=== PATIENT | female | born 1945 | race Caucasian/White ===

== ENCOUNTER 2023-10-15 05:36 | Inpatient (IN) ==
--- NOTE | 2023-09-25 10:06 | PAT Medication Instructions ---
Medication Instructions Date of Service September 25, 2023 Home Medications anastrozole 1 mg tablet 1 mg PO QAM aspirin 81 mg capsule 81 mg PO QAM chlorthalidone 25 mg tablet 25 mg PO QAM cholecalciferol (vitamin D3) 125 mcg (5,000 unit) tablet (Vitamin D3) 125 mcg PO QAM dapagliflozin propanediol 10 mg tablet (Farxiga) 10 mg PO QAM levothyroxine 100 mcg tablet 100 mcg PO QAM paroxetine HCl 20 mg tablet 20 mg PO QAM potassium chloride 10 mEq capsule,extended release 10 meq PO QAM rosuvastatin 20 mg tablet 20 mg PO HS semaglutide 2 mg/dose (8 mg/3 mL) subcutaneous pen injector (Ozempic) 2 mg subcut Q7D vitamin E 180 mg PO QAM ASK your prescriber and surgeon anastrozole 1 mg tablet 1 mg PO QAM aspirin 81 mg capsule 81 mg PO QAM STOP taking 3 days before surgery dapagliflozin propanediol 10 mg tablet (Farxiga) 10 mg PO QAM STOP 7 days prior to surgery semaglutide 2 mg/dose (8 mg/3 mL) subcutaneous pen injector (Ozempic) 2 mg subcut Q7D STOP taking 2 weeks before surgery (or as soon as possible if surgery is within 2 weeks) vitamin E 180 mg PO QAM DO NOT take the morning of surgery chlorthalidone 25 mg tablet 25 mg PO QAM cholecalciferol (vitamin D3) 125 mcg (5,000 unit) tablet (Vitamin D3) 125 mcg PO QAM potassium chloride 10 mEq capsule,extended release 10 meq PO QAM Take morning of surgery With a small sip of water, OTHERWISE NOTHING TO EAT OR DRINK AFTER MIDNIGHT: levothyroxine 100 mcg tablet 100 mcg PO QAM paroxetine HCl 20 mg tablet 20 mg PO QAM Take evening before surgery rosuvastatin 20 mg tablet 20 mg PO HS Other Notes If you have any questions please call us at [phone] or [phone] or [phone] or [phone]
--- NOTE | 2023-09-29 09:52 | Anesthesiology Consultation ---
Date of Service September 29, 2023 Assessment & Plan (1) Encounter for pre-operative examination: - check BSG am DOS. - awaiting surgeon ordered [facility] medical and cardiology clearances per patient and friend. PAT testing to be faxed to [facility] PCP. - semaglutide instructions: Patient informed at PAT visit to stop 7 days prior to surgery- voiced understanding. Patient advised to check with prescriber to see if alternative diabetic management changes recommended while holding semaglutide- if so, patient to call back to [facility] to update chart and discuss if any further preop medication instructions needed. Chart Review Chart Review: Pending: Refer to Additional Notes / Consult section and Patient seen in Pre Admission Testing Teaching & Discussion Pre-Anesthesia Teaching/Discussion Notes: Instructed NPO after midnight before surgery, except medications with 15 cc of water. Medication instructions provided according to the [facility] guidelines. History Surgery Operation Date: 10/15/23 11:25 Proposed Procedures p C4-C7 Anterior Cervical Discectomy and Fusion with Spinal Cord Monitoring - Tony Chicas, Height/Weight Height: 5 ft 4 in Weight: 91.6 kg Allergies Allergy/AdvReac Type Severity Reaction Status Date / Time No Known Allergies Allergy Verified 09/25/23 08:41 Medications Home Medications Medication Instructions Recorded Confirmed Last Taken anastrozole 1 mg tablet 1 mg PO QAM 09/25/23 09/25/23 Unknown aspirin 81 mg capsule 81 mg PO QAM 09/25/23 09/25/23 Unknown chlorthalidone 25 mg tablet 25 mg PO QAM 09/25/23 09/25/23 Unknown cholecalciferol (vitamin D3) 125 125 mcg PO QAM 09/25/23 09/25/23 Unknown mcg (5,000 unit) tablet (Vitamin D3) dapagliflozin propanediol 10 mg 10 mg PO QAM 09/25/23 09/25/23 Unknown tablet (Farxiga) levothyroxine 100 mcg tablet 100 mcg PO QAM 09/25/23 09/25/23 Unknown paroxetine HCl 20 mg tablet 20 mg PO QAM 09/25/23 09/25/23 Unknown potassium chloride 10 mEq 10 meq PO QAM 09/25/23 09/25/23 Unknown capsule,extended release rosuvastatin 20 mg tablet 20 mg PO HS 09/25/23 09/25/23 Unknown semaglutide 2 mg/dose (8 mg/3 mL) 2 mg subcut Q7D 09/25/23 09/25/23 Unknown subcutaneous pen injector (Ozempic) vitamin E 180 mg PO QAM 09/25/23 09/25/23 Unknown Past Medical History Medical History (Updated 09/29/23 @ 09:59 by Ameena Robison PA-C) Arthritis Breast cancer (~2019) dx ~2019, right breast, sx and xrt Diabetes mellitus, type 2 NIDDM GERD (gastroesophageal reflux disease) controlled, stable per pt Hx of cardiac murmur has had since , no cardio. Hx of gastric ulcer (~2013) no current issues Hyperlipidemia Hypertension controlled, stable per pt Hypothyroidism Patient denies h/o stroke, seizures, heart attack, heart failure, blood clots/DVTs or blood transfusions. Exercise / Class Metabolic Activity III < 4 Walking/Shop/Light housework (denies chest discomfort or shortness of breath with usual activities) Past Surgical History Surgical History History of bilateral cataract extraction History of bilateral tubal ligation History of esophagogastroduodenoscopy (EGD) History of lumpectomy of right breast no limb restriction History of vocal cord polypectomy Hx laparoscopic cholecystectomy Hx of tonsillectomy Hx of total thyroidectomy Past Anesthesia History Difficult Airway (h/o vocal cord polypectomy) and No Family Hx of Anesthesia Com plications History of PONV No Hx of PONV and No Hx of Motion Sickness Social History Smoking Status: Former smoker Do You Dip or Chew Tobacco: No Smoking End Date: 11 years ago Hx Alcohol Use: Yes Alcohol type: beer alcohol intake frequency: holidays/special occasions only Hx Substance Use: No substance use type: does not use Review of Systems Occasional snoring, denies witnessed apneas. Patient denies chest pain, shortness of breath, dyspnea on exertion, fever, chills, cough, wheezing, or palpitations. Physical Exam Vital Signs Vitals BP 122/76 P 86 TEMP 98.6 SP02 95% on RA RESP 17 Physical Patient resting comfortably in chair in no acute distress, alert and oriented, responding appropriately throughout visit Full cervical extension range of motion without pain TMD 3.5 finger breadths Mallampati Score 2 Dentition: edentulous, full upper and lower dentures Lungs: normal respiratory effort. Good air movement, clear throughout to auscultation, no adventitious breath sounds Cardiac: regular rate and rhythm, 3/6 systolic murmur, no gallops or rubs Carotid arteries: negative bruit bilat Lab Results Anesthesia Preop Results Results Anesthesia Widget: WBC 11.43 K/ul (4.8-10.8) H 09/29/23 Hgb 11.8 g/dl (12.0-16.0) L 09/29/23 Hct 37.0 % (37.0-47.0) 09/29/23 Plt 367 K/uL (130-400) 09/29/23 Na 137 mmol/L (136-145) 09/29/23 K 3.2 mmol/L (3.5-5.1) L 09/29/23 Cl 103 mmol/L (98-107) 09/29/23 CO2 26 mmol/L (21-32) 09/29/23 BUN 25 mg/dl (6-23) H 09/29/23 Creat 1.26 mg/dl (0.6-1.2) H 09/29/23 Glucose Level 195 mg/dl (70-99(Fasting)) H 09/29/23 PT 10.6 Seconds (9.0-12.0) 09/29/23 PTT 25 Seconds (21-31) 09/29/23 INR 1.0 (0.9-1.1) 09/29/23 HA1c 7.6 % (4.5-5.6) H 09/29/23 Urine Color Yellow 09/29/23 Urine Appearance Cloudy (Clear) A 09/29/23 Urine pH 5.5 (4.5-7.5) 09/29/23 Urine Specific [place] 1.039 (1.000-1.030) H 09/29/23 Urine Protein 2+ (Negative) H 09/29/23 Urine Glucose (UA) 3+ (Negative) H 09/29/23 Urine Ketones Negative (Negative) 09/29/23 Urine Blood 2+ (Negative) H 09/29/23 Urine Nitrite Negative (Negative) 09/29/23 Urine Bilirubin Negative (Negative) 09/29/23 Urine Urobilinogen Negative (Negative) 09/29/23 Urine Leukocyte Esterase Trace (Negative) H 09/29/23 Urine WBC (Auto) 21-50 /hpf (0-5) H 09/29/23 Urine RBC (Auto) 0-2 /hpf (0-2) 09/29/23 Urine Hyaline Casts (Auto) 3-5 /lpf (0-2) H 09/29/23 Urine Epithelial Cells (Auto) 0-2 /hpf (0-2) 09/29/23 Urine Bacteria (Auto) None Seen (None Seen) 09/29/23 Blood Type O Positive 09/29/23 Antibody Screen NEGATIVE 09/29/23 Testing Laboratory Results Surgeon's office notified of abnormal UA and elevated A1c. Electrocardiogram Date: 09/29/23 NSR, rate 80 bpm LBBB Chest X-Ray Date: 09/29/23 No acute chest disease. Echocardiogram Date: 03/19/23 EF 60% Mildly dilated La Aortic valve not well seen, MG of 14 suggests at most mild No obvious RWMA Grade I diastolic diastolic dysfunction Stress Test Date: 03/19/23 Pharmacologic Negative for prior myocardial infarction and/or ischemia EF ? 65%
[2023-10-15] MEDS: LR 15ML/HR IV SCH (06:55)
[2023-10-15] MEDS: CeleBREX 200 MG CAP PO SCH (07:04)
[2023-10-15] MEDS: GABAPENTIN 300 MG CAP PO SCH (07:04)
[2023-10-15] MEDS: ACETAMINOPHEN 500 MG TAB PO SCH (07:04)
[2023-10-15] MEDS: LR 60ML/HR IV SCH (07:04)
[2023-10-15] MEDS ORDERED: fentaNYL citrate PF 100 MCG/2 ML VIAL ONE (07:14)
[2023-10-15] MEDS ORDERED: ePHEDrine sulfate 50 MG/ML AMP IV PRN (07:17)
[2023-10-15] MEDS ORDERED: DROPERIDOL 5 MG/2 ML VIAL IV PRN (07:17)
[2023-10-15] MEDS ORDERED: ATROPINE SULFATE 0.1 MG/ML 10ML SYR IV PRN (07:17)
[2023-10-15] MEDS ORDERED: ROCURONIUM BROMIDE 10 MG/ML 5 ML VIAL IV ONE ×3 (07:22→09:38)
[2023-10-15] MEDS ORDERED: LIDOCAINE 2% 2 ML VIAL/AMP(20MG/ML) INFIL ONE (07:22)
[2023-10-15] MEDS ORDERED: ONDANSETRON INJ 2 MG/ML 2 ML VIAL ONE (07:22)
[2023-10-15] MEDS ORDERED: DEXAMETHASONE SOD INJ 4 MG/ML VIAL ONE (07:22)
[2023-10-15] MEDS ORDERED: PROPOFOL IV EMULSION 10 MG/ML 20 ML VIAL IV ONE (07:22)
--- NOTE | 2023-10-15 07:46 | History & Physical Bridge Note ---
Date of Service October 15, 2023 History & Physical Bridge Note I have examined the patient, reviewed the History & Physical and in the interval since the performance of the History & Physical I have noted the following changes of clinical significance: no changes noted
--- NOTE | 2023-10-15 07:47 | History & Physical Report ---
Date of Service October 15, 2023 Assessment & Plan (1) Cervical stenosis of spinal canal: Plan: Anterior cervical discectomy and fusion C4-C7 History of Present Illness Chief Complaint: Neck and bilateral arm pain Primary Care Provider: NO PCP This is a 77-year-old female presents with worsening neck and bilateral arm pain and failing since course of nonoperative care she is here for surgical invention. Allergies Allergy/AdvReac Type Severity Reaction Status Date / Time No Known Allergies Allergy Verified 10/15/23 06:22 Home Medications Medication Instructions Recorded Confirmed Type anastrozole 1 mg tablet (Arimidex) 1 mg PO QAM 09/25/23 10/15/23 History aspirin 81 mg capsule 81 mg PO QAM 09/25/23 10/15/23 History chlorthalidone 25 mg tablet 25 mg PO QAM 09/25/23 10/15/23 History cholecalciferol (vitamin D3) 125 125 mcg PO QAM 09/25/23 10/15/23 History mcg (5,000 unit) tablet (Vitamin D3) dapagliflozin propanediol 10 mg 10 mg PO QAM 09/25/23 10/15/23 History tablet (Farxiga) levothyroxine 100 mcg tablet 100 mcg PO QAM 09/25/23 10/15/23 History paroxetine HCl 20 mg tablet (Paxil) 20 mg PO QAM 09/25/23 10/15/23 History potassium chloride 10 mEq 10 meq PO QAM 09/25/23 10/15/23 History capsule,extended release rosuvastatin 20 mg tablet (Crestor) 20 mg PO HS 09/25/23 10/15/23 History semaglutide 2 mg/dose (8 mg/3 mL) 2 mg subcut Q7D 09/25/23 10/15/23 History subcutaneous pen injector (Ozempic) vitamin E 180 mg PO QAM 09/25/23 10/15/23 History Past Med/Surg History Problem List (Updated 10/15/23 @ 07:47 by Tony Chicas DO) Cervical stenosis of spinal canal Medical History (Updated 10/15/23 @ 07:47 by Tony Chicas DO) GERD (gastroesophageal reflux disease) controlled, stable per pt Hx of cardiac murmur has had since , no cardio. Arthritis Hx of gastric ulcer (~2013) no current issues Breast cancer (~2019) dx ~2020, right breast, sx and xrt Diabetes mellitus, type 2 NIDDM Hyperlipidemia Hypertension controlled, stable per pt Hypothyroidism Surgical History History of bilateral cataract extraction History of bilateral tubal ligation Hx laparoscopic cholecystectomy History of esophagogastroduodenoscopy (EGD) History of lumpectomy of right breast no limb restriction History of vocal cord polypectomy Hx of tonsillectomy Hx of total thyroidectomy Social History Smoking Status: Former smoker Smoking End Date: 11 years ago; Second Hand Exposure: No; Do You Dip or Chew Tobacco: No; Tobacco Cessation Education Requested by Patient: No Hx Alcohol Use: Yes Alcohol type: beer Hx Substance Use: No Preferred Language: [place] Communication Ability: Effective Grocery Store Clerk Required: No Beliefs That Will Affect Care: None Current Living Situation: Spouse and Family Other Information That Helps Us Care for You: No Feels Safe at Home: Yes Safety Concerns: Feels Safe At This Time Assistive Devices: None Physical Exam Physical Exam: Patient is a alert and oriented Heart regular in rhythm Lungs clear Results & Data Results & Data Vital Signs (Past 12 Hours) Vital Signs Temp Pulse Resp BP Pulse Ox O2 Del Method 10/15/23 06:28 36.8 C 84 20 151/92 H 94 Room Air
[2023-10-15] MEDS: ceFAZolin 2000MG 2,000 MG/15 ML SYR IV SCH ×2 (07:54→15:40)
[2023-10-15] MEDS ORDERED: PHENYLEPHRINE HCL 10 MG/ML VIAL ONE (08:31)
[2023-10-15] MEDS ORDERED: diphenhydrAMINE 50 MG/ML VIAL ONE (09:39)
[2023-10-15] MEDS ORDERED: SUGAMMADEX SODIUM 200 MG/2 ML VIAL IV ONE (09:42)
[2023-10-15] MEDS: ceFAZolin 330 MG/ML 1 GM VIAL ONE (09:50)
--- NOTE | 2023-10-15 09:51 | Operative Report ---
Post Operative Report Pre & Post Diagnosis Operation Date: 10/15/23 07:45 Pre-Op Diagnosis: Cervical spinal stenosis with myeloradiculopathy Post-Op Diagnosis: same I identified the patient and participated in the time-out.: Yes Procedure Operation Date: 10/15/23 07:45 Actual Procedures 1. Anterior cervical discectomy with bilateral foraminotomies C4-C5, C5-C6 and C6-C7. #2 anterior cervical arthrodesis C4-C5, C5-C6 and C6-C7. #3 placement of Spira 8 mm cage filled with os design bone graft at C4-C5, C5-C6 and C6-C7. #4 application of K2 M plate and screws from C4 to see 7. Surgeon Tony Chicas, Fee Clerk Scarlett Scott Estimated Blood Loss 10 Findings Consistent with Post-Op Diagnosis Specimens none Indications This is a 77-year-old female presents above-mentioned diagnosis or plan since course of nonoperative care she is here for surgical invention. Description of Procedure Patient was met with identified informed consent obtained. Patient was then taken to the operative suite underwent a patient placed in supine position on the Michael table with head Reynolds headlight assembler. All bony prominences well- padded eyes inspected to ensure no external pressure placed upon the. This point the anterior cervical spine was prepped and draped in a sterile fashion. The assistance of fluoroscopy identified the C5-C6 disc base and a transverse incision was placed along the right anterior aspect of the cervical spine overlying this region. Blunt dissection with assistance of bipolar electrocautery is then performed down to expose the anterior cervical spine from C4-C7. Self-retaining retractors placed and beginning with C4-C5 complete discectomy was performed up to the uncovertebral joints bilaterally. [place] distraction pins utilized to assist in visualization. Removed all posterior annular fibers longitudinal ligament bilateral foraminotomies performed. Endp lates burred to subcortical bleeding bone and an 8 mm Spira cage filled with os design bone graft tapped in position. Distracting apparatus was removed and I proceeded to C5-C6. Again complete discectomy performed out to the uncovertebral's bilaterally. [place] distracting pins again utilized. Removed all posterior annular fibers longitudinal ligament bilateral foraminotomies performed. And again an 8 mm Spira cage filled with osseous bone graft tapped in position. Lastly proceeded to C6-C7. Again complete discectomy performed out to the uncovertebral's bilaterally. [place] distracting pins again utilized just assist in visualization. Removed all posterior fibers longitudinal ligament bilateral foraminotomies were performed. Endplates burred to subcortical bleeding bone and 8 mm Spira cage filled with osseous and bone graft tapped in position. Distracting apparatus was removed all anterior osteophytes burred to a smooth cortical surface and a K2 M plate and screws applied with the assistance of fluoroscopy. The incision was then copiously irrigated explored to ensure no damage to surrounding structures remaining bleeding. 10 round JAMES drain inserted. The incision was then closed with 2 Vicryl in a fashion of 4 Monocryl for final closure. Steri-Strips sterile dressing placed. Patient awakened taken to PACU stable condition. Please note spinal cord monitoring was utilized at the procedure no changes noted. Lastly Scarlett Scott was present at the entire surgery and while the patient positioning complex portion of the surgery and final skin closure. I attest to the content of the Intraoperative Record and any orders documented therein. Any exceptions are noted below.
[2023-10-15] MEDS: fentaNYL citrate PF 100 MCG/2 ML VIAL IV PRN (10:05)
--- NOTE | 2023-10-15 10:28 | Fluoroscopy Report ---
FL cervical 2-3V CLINICAL HISTORY: C4-7 DISCECTOMY AND FUSION TECHNIQUE: 3 views were obtained with the C-arm in the OR with the above procedure. Total fluoroscopy time was 12.3 seconds. Radiation dose was 1.5 to mGy. Comparison: None available at the time of this dictation. FINDINGS/IMPRESSION: Intraoperative images were obtained of ACDF placement at C4-C7. Please correlate with intraoperative fluoroscopy and operative report. ACT 112: Negative or not required by law. Electronically signed by: Bo German M.D. 10/15/2023 10:27 AM
[2023-10-15] MEDS: LORazepam 0.5 MG in SYRINGE 0.25 ML IV STA (11:10)
[2023-10-15] MEDS ORDERED: PHARMACY GLYCEMIC MGMT CONSULT PRN (11:16)
[2023-10-15] MEDS: dexAMETHasone 10 MG in SYRINGE 0 ML IV ONE (11:34)
--- NOTE | 2023-10-15 11:45 | Anesthesiology Progress Note ---
Date of Service October 15, 2023 Anesthesia Post Procedure Vital Signs Vital Signs: Temp Pulse Pulse Resp BP Pulse Ox O2 Del Method 10/15/23 11:30 75 20 126/78 96 Nasal Cannula 10/15/23 11:20 73 15 132/62 96 Nasal Cannula 10/15/23 11:10 72 19 119/66 97 Nasal Cannula 10/15/23 11:00 76 20 132/60 93 Nasal Cannula 10/15/23 10:50 72 15 126/66 94 Room Air 10/15/23 10:40 74 13 126/79 93 Room Air 10/15/23 10:30 73 20 120/69 92 Oxymask 10/15/23 10:20 67 12 112/57 L 95 Oxymask 10/15/23 10:10 63 10 L 113/56 L Oxymask 10/15/23 10:00 37.0 C 76 15 117/49 L Oxymask 10/15/23 06:28 36.8 C 84 20 151/92 H 94 Room Air O2 Flow Rate 10/15/23 11:30 2 10/15/23 11:20 2 10/15/23 11:10 3 10/15/23 11:00 3 10/15/23 10:50 10/15/23 10:40 10/15/23 10:30 5 10/15/23 10:20 5 10/15/23 10:10 5 10/15/23 10:00 5 10/15/23 06:28 Pain Intensity Bilateral Shoulder: Pain Intensity: 2 Transfer of Care Handoff Completed per policy Notes Mental Status: alert / awake / arousable Patient Amnestic to Procedure: Yes Nausea / Vomiting: adequately controlled Pain: adequately controlled Airway Patency, RR, SpO2: stable & adequate BP & HR: stable & adequate Hydration State: stable & adequate Anesthetic Complications: no major complications apparent and Pt Satisfied with anesthetic care
[2023-10-15] MEDS ORDERED: ACETAMINOPHEN 500 MG TAB PO PRN (12:43)
[2023-10-15] MEDS ORDERED: HYDROmorphone INJ 0.5 MG/0.5 ML SYR IV PRN (12:43)
[2023-10-15] MEDS ORDERED: SOD PHOSPHATE/SOD BIPHOSPHATE ENEMA 132 ML BTL PR PRN (12:43)
[2023-10-15] MEDS ORDERED: RACEPINEPHRINE 2.25% NEBU SOLN 0.5 ML VIAL INH PRN (12:43)
[2023-10-15] MEDS ORDERED: DO NOT ADMINISTER FLU VACCINE PRN (12:43)
[2023-10-15] MEDS ORDERED: ONDANSETRON 4 MG OD TAB PO PRN (12:43)
[2023-10-15] MEDS ORDERED: METOCLOPRAMIDE HCL INJ 5 MG/ML 2 ML VIAL IV PRN (12:43)
[2023-10-15] MEDS ORDERED: MAGNESIUM HYDROXIDE SUSP 30 ML UDC PO PRN (12:43)
[2023-10-15] MEDS ORDERED: hydrOXYzine HCl 25 MG TAB PO PRN (12:43)
[2023-10-15] MEDS ORDERED: ACETAMINOPHEN 1,000 MG/100 ML VIAL IV PRN (12:43)
[2023-10-15] MEDS ORDERED: oxyCODONE HCL IR 5 MG TAB (IMMEDIATE RELEASE) PO PRN (12:43)
[2023-10-15] MEDS ORDERED: FAMOTIDINE 20 MG TAB PO PRN (12:43)
[2023-10-15] MEDS ORDERED: bisacodyL 10 MG SUPP PR PRN (12:43)
[2023-10-15] MEDS ORDERED: PROMETHAZINE HCL 12.5 MG in SODIUM CHLORIDE 0.9% 50 ML IV PRN (12:43)
[2023-10-15] MEDS ORDERED: HYDROmorphone INJ 1 MG/ML SYRINGE IV PRN (12:43)
[2023-10-15] MEDS ORDERED: ONDANSETRON INJ 2 MG/ML 2 ML VIAL IV PRN (12:43)
[2023-10-15] MEDS ORDERED: traMADol HCL 50 MG TABLET PO PRN (12:43)
[2023-10-15] MEDS ORDERED: NALOXONE HCL 0.4 MG/1 ML VIAL/CARP IV PRN (12:43)
[2023-10-15] MEDS ORDERED: dexAMETHasone 8 MG in SYRINGE 0 ML IV PRN (12:43)
[2023-10-15] MEDS ORDERED: LORazepam 0.5 MG in SYRINGE 0.25 ML IV PRN (12:43)
[2023-10-15] MEDS ORDERED: LORazepam 0.5 MG TAB PO PRN (12:43)
[2023-10-15] MEDS ORDERED: DO NOT ADMINISTER PNEUMOCOCCAL VACCINE PRN (12:43)
[2023-10-15] MEDS ORDERED: ALUMINUM/MAGNESIUM SUSP 30 ML UDC PO PRN (12:43)
[2023-10-15] MEDS ORDERED: GLUCOSE 40% GEL 15 GM TUBE PO PRN (12:45)
[2023-10-15] MEDS ORDERED: GLUCOSE 10 TAB/TUBE PO PRN (12:45)
[2023-10-15] MEDS ORDERED: DEXTROSE 50% 50 ML SYRINGE IV PRN (12:45)
[2023-10-15] MEDS ORDERED: CARBOHYDRATES FOR HYPOGLYCEMIA PO PRN (12:45)
[2023-10-15] MEDS ORDERED: GLUCAGON FOR INJ 1 MG VIAL IM PRN (12:45)
[2023-10-15] MEDS: dexAMETHasone**PF** 10 MG/ML VIAL IV STA (13:28)
[2023-10-15] MEDS: FLOSEAL HEMOSTATIC MATRIX 10ML TOP ONE (13:28)
[2023-10-15] MEDS: LORazepam 2 MG/1 ML VIAL ONE (13:28)
--- NOTE | 2023-10-15 13:32 | Consultation ---
Date of Consultation October 15, 2023 Assessment & Plan (1) Cervical stenosis of spinal canal: (2) Hypertension: (3) Hyperlipidemia: (4) Diabetes mellitus, type 2: (5) Breast cancer: (6) GERD (gastroesophageal reflux disease): (7) Hypothyroidism: Plan Ms. Hernadez is a 77-year-old female presents with worsening neck and bilateral arm pain and failing since course of nonoperative care she is here for surgical invention under the care of Dr. Chicas. Intraoperatively, no complications were identified per review of operative note. EBL 10 mL. Most recent ECHO as an outpatient normal LV wall motion, EF 60%. Blood work preoperatively from the beginning of September 26 unremarkable; NANY noted 1.26 unsure of baseline creatinine. Preop ECG revealed normal sinus rhythm with LBBB; no other ECG for comparison. Ozempic and Farxiga held preop. Reportedly patient was taking Ozempic to lower her A1c in preparation for a knee replacement. Patient has been had concerns about whether or not she was going to restart her Ozempic I suggested that that was discussed with her outpatient PCP through [facility] [address]. Upon entering the room patient is sitting in bedside chair AAOx4 and able to have full conversation in meaningful way. Patient has neck brace on and is tolerating well. Patient reports that her arms feel like weight and we discussed the intrathecal block that was placed and how this feeling is expected and normal. Patient is able to wiggle both of her fingers on both of her hands. She has a JAMES drain inserted with minimal eladia red bloody output. continuous pulse ox on and in place. Cervical stenosis of spinal canal: Acute POD# 0 s/p ACDF C4-C5, C5-C6, C6-C7 with Dr. Chicas. Per ortho for pain control, wound care, anticoagulation and activities. JAMES drain x1 eladia red bloody output Monitor H&H, Preop H GB 11.8; will trend in a.m. continue incentive spirometry/deep breaths PT/OT when appropriate continuous pulse ox Neck brace applied NIDDM 2: Chronic Takes Farxiga and Ozempic; both held pre op Placed on SSI post op by primary admitting team Will check A1C in AM HLD: Chronic Takes rosuvastatin; continue History of breast cancer: Chronic Diagnosed 2002 status post surgery and radiation Hypothyroidism: Chronic Takes levothyroxine; continue Depression: Chronic Takes Paxil; continue Disposition: PCP: Elías Navarrete Code Status: Full Code VTE Prophylaxis: Per admitting team I spent a total of 60 minutes coordinating, documenting, and providing care for this patient excluding time spent in the performance of separately billed services. All of the aforementioned completed while collaborating with the assigned attending physician for a full treatment plan. Please see their addendum for further details. Supervising Physician Co-Signing Physician Notes Patient is a 77-year-old female with history of hypothyroidism, hyperlipidemia, diabetes mellitus, breast cancer and other medical problems was consulted for po stop medical management. Patient underwent anterior cervical discectomy with bilateral foraminotomies for cervical stenosis with myeloradiculopathy. Patient is doing well postoperatively. Neck pain at surgical site is controlled. Patient states that her arms feel like weight but otherwise no other complaints. Patient denies any chest pain, dyspnea, dizziness, nausea, vomiting, abdominal pain. Please review HPI for complete details of presentation. I personally reviewed the chart. On exam patient is moderately built and nourished, no apparent distress, normocephalic atraumatic, EOMI, Neck- surgical site in dressing, drain, + neck collar, Normal breath sounds, clear to auscultation, S1-S2, no murmur, no pedal edema, abdomen soft, nontender, normal bowel sounds, alert, awake, oriented, grossly no focal deficits. Patient is consulted for postop medical management. Pain control, DVT prophylaxis, wound care as per primary team. Continue bowel regimen to prevent constipation. Monitor for postop anemia. Continue insulin while hospitalized for management of diabetes mellitus. I personally interviewed and examined at bedside. Patient's care is coordinated with Yahaira DORSEY. I have reviewed the advanced practitioner's documentation, and I agree with plan of care. Please refer to the documentation above for details of patient's presentation and for discussion of other issues. I spent a total of25 minutes coordinating, documenting, and providing care for this patient excluding time spent in the performance of separately billed services. History of Present Illness Reason for Consultation: Postop medical consultation Attending Physician: Tony Chicas, DO History of Present Illness Ms. Hernadez is a 77-year-old female presents with worsening neck and bilateral arm pain and failing since course of nonoperative care she is here for surgical invention under the care of Dr. Chicas. Intraoperatively, no complications were identified per review of operative note. EBL 10 mL. Most recent ECHO as an outpatient normal LV wall motion, EF 60%. Blood work preoperatively from the beginning of September 26 unremarkable; NANY noted 1.26 unsure of baseline creatinine. Additional past medical history includes breast cancer 2019 s/p radiation and surgery, NIDDM 2, HTN, HLD, hypothyroidism, and GERD. Preop ECG revealed normal sinus rhythm with LBBB; no other ECG for comparison. Ozempic and Farxiga held preop. Reportedly patient was taking Ozempic to lower her A1c in preparation for a knee replacement. Patient has been had concerns about whether or not she was going to restart her Ozempic I suggested that that was discussed with her outpatient PCP through [facility] [address]. Upon entering the room patient is sitting in bedside chair AAOx4 and able to have full conversation in meaningful way. Patient has neck brace on and is tolerating well. Patient reports that her arms feel like weight and we discussed the intrathecal block that was placed and how this feeling is expected and normal. Patient is able to wiggle both of her fingers on both of her hands. She has a JAMES drain inserted with minimal eladia red bloody output. continuous pulse ox on and in place. Pt denies [place], dizziness, SOB, chest pain, palpitations, N/V/D, abdominal pain or tenderness, recent falls or trauma. [facility] hospitalist service was consulted for postop medical management. We are available 15/12 via [place] text for any questions or concerns. Allergies Allergy/AdvReac Type Severity Reaction Status Date / Time No Known Allergies Allergy Verified 10/15/23 06:22 Home Medications Medication Instructions Recorded Confirmed Type anastrozole 1 mg tablet (Arimidex) 1 mg PO QAM 09/25/23 10/15/23 History aspirin 81 mg capsule 81 mg PO QAM 09/25/23 10/15/23 History chlorthalidone 25 mg tablet 25 mg PO QAM 09/25/23 10/15/23 History cholecalciferol (vitamin D3) 125 125 mcg PO QAM 09/25/23 10/15/23 History mcg (5,000 unit) tablet (Vitamin D3) dapagliflozin propanediol 10 mg 10 mg PO QAM 09/25/23 10/15/23 History tablet (Farxiga) levothyroxine 100 mcg tablet 100 mcg PO QAM 09/25/23 10/15/23 History paroxetine HCl 20 mg tablet (Paxil) 20 mg PO QAM 09/25/23 10/15/23 History potassium chloride 10 mEq 10 meq PO QAM 09/25/23 10/15/23 History capsule,extended release rosuvastatin 20 mg tablet (Crestor) 20 mg PO HS 09/25/23 10/15/23 History semaglutide 2 mg/dose (8 mg/3 mL) 2 mg subcut Q7D 09/25/23 10/15/23 History subcutaneous pen injector (Ozempic) vitamin E 180 mg PO QAM 09/25/23 10/15/23 History Patient History Medical History GERD (gastroesophageal reflux disease) controlled, stable per pt Hx of cardiac murmur has had since , no cardio. Arthritis Hx of gastric ulcer (~2013) no current issues Breast cancer (~2019) dx ~2019, right breast, sx and xrt Diabetes mellitus, type 2 NIDDM Hyperlipidemia Hypertension controlled, stable per pt Hypothyroidism Surgical History History of bilateral cataract extraction History of bilateral tubal ligation Hx laparoscopic cholecystectomy History of esophagogastroduodenoscopy (EGD) History of lumpectomy of right breast no limb restriction History of vocal cord polypectomy Hx of tonsillectomy Hx of total thyroidectomy Social History Smoking Status: Former smoker Smoking End Date: 11 years ago; Second Hand Exposure: No; Do You Dip or Chew Tobacco: No; Tobacco Cessation Education Requested by Patient: No Hx Alcohol Use: Yes Alcohol type: beer Hx Substance Use: No Preferred Language: Marshallese Communication Ability: Effective Field Recruiter Required: No Beliefs That Will Affect Care: None Current Living Situation: Spouse and Family Other Information That Helps Us Care for You: No Feels Safe at Home: Yes Safety Concerns: Feels Safe At This Time Assistive Devices: None Review of Systems Review of Systems: Neuro: (-) Falls, trauma, slurred speech HEENT: (-) [place], dizziness, dysphagia, visual or auditory changes CV: (-) CP, palpitations, swelling Resp: (-) SOB GI: (-) appetite changes, N/V/D, bowel changes : (-) urinary changes Skin: (-) rashes Psych: (-) anxiety, depression Physical Exam Physical Exam: Neuro: AAOx4, PERRLA, no aphagia, memory changes, CNII-XII grossly intact HEENT: head normocephalic, moist mucus membranes CV: S1/S2, (-) M/G/R, (-) edema, cap refill < 3 seconds Resp: Lungs CTA in all wilson. On 2LNC post op spo2 98% GI: Abdomen S/NT/ND, Ax4 bowel sounds, (-) CVA tenderness Musculoskeletal: 5/5 B/L UE strength, 5/5 B/L LE strength. No gait disturbance Skin: (-) rashes , (-) erythema. Psych: euthymic mood Results & Data Vital Signs (Past 12 Hours) Vital Signs Temp Pulse Pulse Resp BP Pulse Ox O2 Del Method 10/15/23 13:01 78 16 97 Nasal Cannula 10/15/23 13:00 36.6 C 79 16 108/68 97 Nasal Cannula 10/15/23 12:10 77 15 120/50 L 98 Nasal Cannula 10/15/23 11:40 74 22 131/53 L 97 Nasal Cannula 10/15/23 11:30 75 20 126/78 96 Nasal Cannula 10/15/23 11:20 73 15 132/62 96 Nasal Cannula 10/15/23 11:10 72 19 119/66 97 Nasal Cannula 10/15/23 11:00 76 20 132/60 93 Nasal Cannula 10/15/23 10:50 72 15 126/66 94 Room Air 10/15/23 10:40 74 13 126/79 93 Room Air 10/15/23 10:30 73 20 120/69 92 Oxymask 10/15/23 10:20 67 12 112/57 L 95 Oxymask 10/15/23 10:10 63 10 L 113/56 L Oxymask 10/15/23 10:00 37.0 C 76 15 117/49 L Oxymask 10/15/23 06:28 36.8 C 84 20 151/92 H 94 Room Air O2 Flow Rate 10/15/23 13:01 2 10/15/23 13:00 2 10/15/23 12:10 2 10/15/23 11:40 2 10/15/23 11:30 2 10/15/23 11:20 2 10/15/23 11:10 3 10/15/23 11:00 3 10/15/23 10:50 10/15/23 10:40 10/15/23 10:30 5 10/15/23 10:20 5 10/15/23 10:10 5 10/15/23 10:00 5 10/15/23 06:28 Diagnostic Findings Cervical Spine X-Ray 10/15/23 07:45 FL cervical 2-3V CLINICAL HISTORY: C4-7 DISCECTOMY AND FUSION TECHNIQUE: 3 views were obtained with the C-arm in the OR with the above procedure. Total fluoroscopy time was 12.3 seconds. Radiation dose was 1.5 to mGy. Comparison: None available at the time of this dictation. FINDINGS/IMPRESSION: Intraoperative images were obtained of ACDF placement at C4-C7. Please correlate with intraoperative fluoroscopy and operative report. ACT 112: Negative or not required by law. Electronically signed by: Bo German M.D. 10/15/2023 10:27 AM
[2023-10-15] MEDS: LANTUS PER UNIT CHARGE SC ONE (13:58)
[2023-10-15] MEDS: INSULIN ASPART PER UNIT CHARGE SC SCH (13:58)
--- NOTE | 2023-10-15 13:58 | Pharmacy Report ---
Pharmacy Glycemic Short Note 2 - Date of Service October 15, 2023 - Glycemic Short BSG Results (Last 24 hours): 10/15/23 10/15/23 10/15/23 06:14 10:02 12:32 POC Glucose 168 H 162 H 167 H OUTPATIENT ANTIDIABETIC REGIMEN: * Dapagliflozin 10mg PO qAM * Semaglutide 2mg SQ weekly (on Tuesdays) * HbA1c: 7.6% (09/29/23) ASSESSMENT: * Ms Hernadez is a 77yo diabetic F who is POD 0 s/p spinal procedure with Dr Chicas this morning. * Pt received 10mg IV DXM post-op and is scheduled to receive 8mg IV q8h moving forward. This is expected to cause significant steroid-induced hyperglycemia. * Pt initiated on SQ basal/bolus insulin regimen on admission. Expect that insulin requirements may lessen as steroids are weaned/discontinued. * Pharmacy will continue to follow during admission and adjust regimen as indicated. PLAN FOR INPATIENT GLYCEMIC CONTROL: * Hold outpatient oral diabetes medications * Basal insulin * Lantus 30 units SQ x1 dose * further dosing pending BSG trend/assessment tomorrow morning * Bolus insulin * NovoLog per scale ACHS or Q6hrs while NPO * Goal Range: Low 110 mg/dL - High 140 mg/dL * Correction Factor: 25 mg/dL/unit * Nutritional / Prandial insulin per carb ratio of 1 unit per 7 grams CHO consumed
[2023-10-15] MEDS: SODIUM CHLORIDE 0.9% 1,000 ML IV SCH (14:04)
[2023-10-15] MEDS: SODIUM CHLORIDE 0.65% NA SOLN 45 ML (OCEAN) ONE (18:32)
[2023-10-15] MEDS: dexAMETHasone 8 MG in SYRINGE 0 ML IV SCH (18:33)
[2023-10-15] MEDS: DOCUSATE SODIUM/SENNA 50/8.6MG TAB PO SCH (21:20)
[2023-10-15] MEDS: diphenhydrAMINE Capsule 25 MG CAP PO PRN (21:25)
[2023-10-15] MEDS: ROSUVASTATIN CALCIUM 20 MG TAB PO SCH (21:25)
[2023-10-16] MEDS: POLYETHYLENE (MIRALAX) 17 GM PACK PO SCH (05:39)
[2023-10-16] MEDS: LEVOTHYROXINE SODIUM 100 MCG TABLET PO SCH (05:40)
[2023-10-16 06:33] LABS: Hematocrit (blood only) 33.1 % (37.0-47.0); Hemoglobin 10.4 g/dl (12.0-16.0); Mean Corpuscular Hemoglobin 28.3 pg (25.0-34.0); Mean Corpuscular Hgb Conc 31.4 g/dL (32.0-36.0); Mean Corpuscular Volume 90.2 fL (80.0-100.0); Mean Platelet Volume 10.4 fL (9.4-12.4); Platelet Count 323 K/uL (130-400); RDW Coefficient of Variation 14.6 % (11.5-14.5); RDW Standard Deviation 48.5 fL (36.4-46.3); Red Blood Count 3.67 M/uL (4.20-5.40); White Blood Count 17.07 K/ul (4.8-10.8)
[2023-10-16 07:00] LABS: BUN Creatinine Ratio 28.6 (10-20); Calcium 8.7 mg/dl (8.6-10.3); Creatinine Clr Calc Pharmacy 60.9 ml/min; Est GFR (African American) 77.7 ml/min; Potassium 3.7 mmol/L (3.5-5.1)
[2023-10-16 07:58] LABS: Estimated Average Glucose 171 mg/dl; Hemoglobin A1C 7.6 % (4.5-5.6)
[2023-10-16] MEDS: ASPIRIN 81 MG ECTAB PO SCH (08:24)
[2023-10-16] MEDS: PARoxetine HCL 20 MG TAB PO SCH (08:24)
[2023-10-16] MEDS: TOCOPHERYL, DL-ALPHA 400 UNITS 180 MG CAP PO SCH (08:24)
[2023-10-16] MEDS: CHOLECALCIFEROL 125 MCG (5,000 UNITS) TAB PO SCH (08:24)
[2023-10-16] MEDS: POTASSIUM CHLORIDE 10 MEQ TABCR PO SCH (08:42)
[2023-10-16] MEDS: LANTUS PER UNIT CHARGE SC SCH (08:44)
[2023-10-16] MEDS ORDERED: dexAMETHasone 6 MG in SYRINGE 0 ML IV SCH (09:00)
--- NOTE | 2023-10-16 09:53 | Discharge Summary ---
Date of Service October 16, 2023 Admission HPI Per Admitting Provider This is a 77-year-old female presents with worsening neck and bilateral arm pain and failing since course of nonoperative care she is here for surgical invention. Principal Diagnosis Cervical spinal stenosis with myeloradiculopathy Discharge Data Allergies Allergy/AdvReac Type Severity Reaction Status Date / Time No Known Allergies Allergy Verified 10/15/23 06:22 Consultations 10/15/23 12:43 Consult Hospitalist Routine Procedures Performed Operation Date: 10/15/23 07:45 Actual Procedures p C4-C7 Anterior Cervical Discectomy and Fusion, Biopsy, Spinal Cord Monitoring(Not Applicable) - Tony Chicas DO Ordered Studies 10/15/23 07:45 FL cervical 2-3V Routine Hospital Course (1) Cervical stenosis of spinal canal: Patient underwent anterior cervical discectomy and fusion trial as well as taken orthopedic for postoperative. Postop 1 she was swallowing well. Pain well- controlled. No hoarseness. Still significant strength deficits which were established preoperatively. Her radicular pain has resolved however. She is anxious to return home. Total Time Total Time Spent Total Time Spent (In Minutes): 20 minutes Discharge Plan Discharge Items Patient Disposition: Home - Self-Care Reason For Visit: Cervical Disc Disease, Cervical Spinal Stenosis Discharge Diagnosis: Cervical spinal stenosis with myeloradiculopathy Activity: As commented below Non-emergency contact: Primary Care Provider Call non-emergency contact if: you have any medication questions Follow-up/Referrals: PCP,NO [Primary Care Provider] - Diet: Regular Addtl Attending Provider Instructions: ACTIVITY RECOMMENDATIONS: SELF CARE INSTRUCTIONS AFTER CERVICAL FUSIONS 1. No smoking. Smoking drastically decreases the chance of a solid fusion. 2. No bending, lifting more than 5 pounds, or twisting (roll like a log when turning in bed). 3. You may shower 3 days after surgery. Thoroughly dry wound. Do not soak in the tub. 4. Cervical collar: Must be worn at all times including sleeping. You may remove the brace only to bath, eat and if you are sitting in a recliner. 5. Please walk as much as you can for exercise. Gradually increase the distance that you walk as your endurance increases. SPECIAL CARE INSTRUCTIONS: VERY IMPORTANT TO READ AND REVIEW A. Do not take any anti-inflammatory medications (i.e. Indocin, Advil, Aspirin, Naprosyn, Aleve, Motrin, etc.) as these may inhibit the chance of a solid fusion. Tylenol is okay to take. B. Your surgical incision has been closed with a cosmetic suture under the skin that will dissolve in about 6 weeks. In 14 days, you can use a pair of clean scissors and cut the suture that is left outside of the skin at the ends of your incision. C. Complications are uncommon, but please contact us if you have any signs or symptoms of: 1. wound infection (fever higher than 102.5 degrees F, redness, separation of wound, drainage, or increasing pain from the incision) 2. blood clots in legs (pain, swelling, redness and warmth in legs) 3. urinary tract infection (fever higher than 102.5 degrees, burning upon urination or increased frequency of urination) 4. nerve problems (inability to walk on your toes or heels, numbness, loss of bowel or bladder control) 5. any other symptoms that concern you. D. Please call the office at if you have any concerns or questions about your operation or recovery. MANAGING PAIN AFTER SPINAL SURGERY 1. Narcotic medication is intended for short-term use and will be provided for surgical pain. Surgical pain usually lasts for a period of 4-6 weeks. Narcotic medication includes Percocet, Vicodin, Darvocet, Tylenol #3 or Lortab. 2. Longer-term pain is more appropriately treated with non-narcotic medication such as Tylenol ES. 3. Muscle spasm is not appropriately treated with narcotics. Muscle relaxers such as Soma, Flexeril or Skelaxin can be used along with Tylenol ES. 4. Remember that we all live with some "aches and pains". This is not unusual or uncommon after an injury or as we get older. 5. We will provide appropriate medication within the normal guidelines of their prescribed use. We will also be very cautious and aware of potential abuse and extended duration of patients' medication needs. 6. Please allow 2-3 days to process refills. Prescriptions will not be mailed but must be picked up at the office. FOLLOW UP VISIT: Keep your scheduled follow-up appointment. Any questions, please call the office at . Pending Studies at Discharge: No Stand-Alone Forms: [employer], Smoking Cessation Medications and DC Order Prescriptions: New tramadol 50 mg tablet 50 mg PO Q6H PRN (Reason: pain, moderate) Qty: 20 0RF oxycodone 5 mg tablet 5 mg PO Q6H PRN (Reason: pain) Qty: 20 0RF Continued anastrozole [Arimidex] 1 mg Tablet 1 mg PO QAM potassium chloride 10 mEq Capsule, Extended Release 10 meq PO QAM chlorthalidone 25 mg Tablet 25 mg PO QAM levothyroxine 100 mcg Tablet 100 mcg PO QAM paroxetine HCl [Paxil] 20 mg Tablet 20 mg PO QAM rosuvastatin [Crestor] 20 mg Tablet 20 mg PO HS cholecalciferol (vitamin D3) [Vitamin D3] 125 mcg (5,000 unit) Tablet 125 mcg PO QAM dapagliflozin propanediol [Farxiga] 10 mg Tablet 10 mg PO QAM aspirin 81 mg Capsule 81 mg PO QAM Ozempic 2 mg/dose (8 mg/3 mL) Pen Injector 2 mg SUBCUT Q7D Patient Comments: tuesdays vitamin E 180 mg PO QAM Discharge Orders: Discharge Order (Routine); Ordered 10/16/23 Ordered By: Tony Morton/Other Patient Handouts: Managing Type 2 Diabetes Admission Data Admit Date/Time: 10/15/23 09:55 Attending Provider: Tony hCicas Admit Provider: Tony Chicas Primary Care Provider: PCP,NO Other Providers: Charleen Bhatti
== END 2023-10-16 13:21 | disposition home or self-care (01) | DRG 472 ==
LOC: ASU 05:36 → 3E 09:55 → OBSVTOIN 09:55 → INTOOBSV 09:55